=== PATIENT | female | born 1980 | race Two or more races ===

== ENCOUNTER 2017-03-24 19:34 | Emergency (ER) | payer SELFPAY ==
[~2017-03-24] VITALS: Ht 162.6 cm; Wt 59.6 kg
[2017-03-24 19:46] VITALS: BP 120/89
[2017-03-24] MEDS ORDERED: PEN-VEE K,VEET500 MG PO (20:40)
[2017-03-24] MEDS ORDERED: ULTRAM50 MG PO (20:40)
== END 2017-03-24 21:14 | disposition home or self-care (01) ==
LOC: EME 19:34
DX: S02.5XXA Fracture of tooth (traumatic), initial encounter for closed fracture (principal); X58.XXXA Exposure to other specified factors, initial encounter
CPT/HCPCS: 99281; 99283